=== PATIENT | female | born 1980 | race Caucasian/White ===

== ENCOUNTER 2020-06-05 11:36 | Emergency (ER) | payer MEDICARE ==
[2020-06-05] MEDS ORDERED: BP MED (12:05)
[2020-06-05] MEDS ORDERED: SEROQUEL100 MG PO (12:05)
[2020-06-05] MEDS ORDERED: GABAPENTIN800 MG PO (12:05)
[2020-06-05] MEDS ORDERED: INHALER (12:06)
[2020-06-05] MEDS ORDERED: PROAIR HFA108 MCG/AC IN (12:07)
[2020-06-05] MEDS ORDERED: AMOX/K CLAV875 M1 PO (12:44)
[2020-06-05 12:45] VITALS: BP 135/88
== END 2020-06-05 12:49 | disposition home or self-care (01) ==
LOC: ED 11:36
DX: B37.0 Candidal stomatitis (principal); J02.0 Streptococcal pharyngitis